=== PATIENT | female | born 1990 ===

== ENCOUNTER 2018-09-20 13:30 | Outpatient (CLI) | payer BC ==
--- NOTE | 2018-09-20 15:18 | ULT ---
OBSTETRICAL SONOGRAM: HISTORY: Second trimester gestation. evaluation. FINDINGS: Multiple transabdominal sonographic views of the gravid uterus show a single intrauterine gestation, in breech presentation. The cervix is closed and 5.6 cm. Air-fluid level is within normal limits. A grade 0 placenta is anterior. No gross intracranial abnormalities. spine and kidneys are in tact, as visualized. A four-chamber heart shows motion at 144 beats per minute. Three-vessel cord s hows a normal insertion. Measurements are follows: BIPARIETAL DIAMETER: 22 weeks 5 days. HEAD CIRCUMFERENCE: 22 weeks 4 days. ABDOMINAL CIRCUMFERENCE: 22 weeks 0 days. FEMUR LENGTH: 21 weeks 1 day. ESTIMATED DATE OF DELIVERY BASED ON TODAY'S SONOGRAM: 01/23/2019 HADLOCK: 72nd percentile. IMPRESSION: 1. Single viable intrauterine gestation with estimated gestational age, based on today's sonogram, 2 2 weeks 1 day. 2. No significant abnormalities are demonstrated. POS: [facility]
== END 2018-09-20 13:31 | disposition home or self-care (01) ==
LOC: BICULT 13:30
PROVIDERS: ATTEND Midwife
DX: Z34.02 Encounter for supervision of normal first pregnancy, second trimester (principal); Z3A.22 22 weeks gestation of pregnancy
CPT/HCPCS: 76805

== ENCOUNTER 2021-02-02 13:52 | Outpatient (CLI) | payer BC | END 2021-02-02 13:53 | disposition home or self-care (01) | LOC: BICULT 13:52 | PROVIDERS: ATTEND Midwife | DX: Z34.92 Encounter for supervision of normal pregnancy, unspecified, second trimester (principal); Z3A.25 25 weeks gestation of pregnancy | CPT/HCPCS: 76805 ==